=== PATIENT | male | born 1995 | race Caucasian/White ===

== ENCOUNTER 2020-12-10 10:03 | Emergency (ER) | payer OTHER ==
[~2020-12-10] VITALS: Ht 175.3 cm; Wt 95.3 kg
[2020-12-10 10:08] VITALS: BP 138/62
[2020-12-10] MEDS ORDERED: HYDROcodone/APAP 5/325 MG 1 TAB TAB PO ONE (10:30)
[2020-12-10] MEDS ORDERED: IBUPROFEN 600 MG TAB PO ONE (10:30)
[2020-12-10] MEDS ORDERED: IBUP-2213 PO (11:16)
[2020-12-10] MEDS ORDERED: ACET-9527 PO (11:16)
[2020-12-10 11:56] VITALS: BP 135/86
== END 2020-12-10 11:56 | disposition home or self-care (01) ==
LOC: MED 10:03
DX: S83.92XA Sprain of unspecified site of left knee, initial encounter (principal); W19.XXXA Unspecified fall, initial encounter; Y93.89 Activity, other specified; Y92.89 Other specified places as the place of occurrence of the external cause; Y99.8 Other external cause status
CPT/HCPCS: 73562; 99283